=== PATIENT | female | born 1970 | race Caucasian/White ===

== ENCOUNTER 2019-03-01 20:18 | Emergency (ER) | payer OTHER ==
[2019-03-01 20:39] VITALS: BP 124/76
[2019-03-01] MEDS ORDERED: Clindamycin CAP* 150 MG PO ONE ×2 (20:59→21:07)
--- NOTE | 2019-03-01 21:02 | UC ---
General HPI - HPI Summary HPI Summary: 49-year-old female comes in with a chief complaint of swelling of the tips of her middle fingers. Patient is on Taxol for chemotherapy. She's been having her fingernails start to come off of all her fingers. Over the last several days the right middle finger has been a little bit more swollen but since this afternoon her left distal finger has gotten much more swollen and is more erythematous. There is some clear drainage from the right finger no drainage from the left finger. Being on the Taxol she has a low white blood cell and red blood cell count. She called her oncologist and said she needed to be evaluated for infection. She has an appointment set up with oncology in 2 days on March 03, 2019. - History of Current Complaint Chief Complaint: Jessie Stated Complaint: FINGER CONCERN Time Seen by Provider: 03/01/19 20:48 Hx Last Menstrual Period: 11/2018 Pain Intensity: 3 - Allergy/Home Medications Allergies/Adverse Reactions: Allergies Allergy/AdvReac Type Severity Reaction Status Date / Time amoxicillin Allergy Hives Verified 03/01/19 20:40 Sulfa (Sulfonamide Allergy Vomiting Verified 03/01/19 20:40 Antibiotics) Home Medications: Home Medications PACLItaxel* [Taxol*] 1 unit INJ SEE INSTRUCTIONS 03/01/19 [History Confirmed ] PMH/Surg Hx/FS Hx/Imm Hx Previously Healthy: Yes - Surgical History Surgical History: Yes Surgery Procedure, Year, and Place: left breast lumpectomy 10/2018; port implantation - Family History Known Family History: Positive: Cardiac Disease - father, PGF - Social History Alcohol Use: None Substance Use Type: None Smoking Status (MU): Never Smoked Tobacco - Immunization History Most Recent Tetanus Shot: unknown Review of Systems All Other Systems Reviewed And Are Negative: Yes Constitutional: Positive: Negative Skin: Positive: Other - SEE HPI Eyes: Positive: Negative ENT: Positive: Negative Respiratory: Positive: Negative Cardiovascular: Positive: Negative Gastrointestinal: Positive: Negative Motor: Positive: Negative Neurovascular: Positive: Negative Musculoskeletal: Positive: Negative Neurological: Positive: Negative Psychological: Positive: Negative Is Patient Immunocompromised?: No Physical Exam Triage Information Reviewed: Yes Appearance: Well-Appearing, No Pain Distress, Well-Nourished Vital Signs: Initial Vital Signs Temp 98.5 F 03/01/19 20:30 Pulse 105 03/01/19 20:30 Resp 18 03/01/19 20:30 BP 124/76 03/01/19 20:30 Pulse Ox 100 03/01/19 20:30 Vital Signs Reviewed: Yes Eye Exam: Normal Eyes: Positive: Conjunctiva Clear Neck: Positive: Supple Respiratory: Positive: No respiratory distress Musculoskeletal: Positive: Strength Intact, ROM Intact Neurological Exam: Normal Neurological: Positive: Alert, Muscle Tone Normal Psychological Exam: Normal Psychological: Positive: Age Appropriate Behavior Skin: Positive: Other - All of the fingernails are starting to come off. Her middle fingers are swollen distally. The left one has some erythema. There is no drainage from the left middle finger. There is some clear drainage underneath the nailbed of the right middle finger. Patient does have sensation and normal capillary refill. Course/Dx - Course Course Of Treatment: The tips of the middle fingers are swollen. It's not obvious was infection at this time however we'll start clindamycin to cover for possible infection. Patient is an appointment with oncology in 2 days on March 03, 2019. We discussed that if she got worse overnight she is to see her oncologist tomorrow March 02, 2019. - Diagnoses Provider Diagnosis: Finger swelling Discharge - Sign-Out/Discharge Documenting (check all that apply): Patient Departure All imaging exams completed and their final reports reviewed: No Studies - Discharge Plan Condition: Stable Disposition: HOME Prescriptions: Clindamycin Cap(NF) [Clindamycin Cap 300 mg Cap(NF)] 300 mg PO Q6H #38 cap Referrals: Natalie Yañez MD [Primary Care Provider] - Additional Instructions: FOLLOW UP WITH YOUR ONCOLOGIST ON 03/03/19 SCHEDULED FOR YOUR FINGER SWELLING. IF NOT IMPROVED OR WORSE, SEE THEM TOMORROW, 03/02/19. GET RECHECKED SOONER IF YOUR CONDITION WORSENS OR ANY QUESTIONS OR CONCERNS. - Billing Disposition and Condition Condition: STABLE Disposition: Home
== END 2019-03-01 21:23 | disposition home or self-care (01) ==
LOC: UCCORT 20:18
DX: M79.89 Other specified soft tissue disorders (principal); Z88.0 Allergy status to penicillin; Z88.2 Allergy status to sulfonamides
CPT/HCPCS: 99212; A9270-GY; G0463